=== PATIENT | female | born 1970 | race Caucasian/White ===

== ENCOUNTER 2017-01-21 04:50 | Inpatient (IN) | payer OTHER ==
[2017-01-21 05:40] LABS: Mean Cell Volume 89.6 fl (78-100); Mean Corpuscular Hemoglobin 29.1 pg (26-32); Mean Platelet Volume 10.9 fl (6-9.5); Platelet Count 229 K/mm3 (150-450); Red Blood Count 3.95 M/mm3 (4.1-5.4); Red Cell Distribution Width 13.4 % (11.5-14.0); White Blood Count 11.5 K/mm3 (4.0-10.5)
[2017-01-21] MEDS ORDERED: Lactated Ringers 1,000 ML IV ONE (06:04)
[2017-01-21 06:06] LABS: PTT 24.9 SECONDS (25.3-37.0)
[2017-01-21 06:21] LABS: Collection Type CLEAN CATCH
[2017-01-21 06:22] LABS: COMPLETE URINE MICROSCOPIC? YES; Ph 7.5 (5-6)
[2017-01-21 06:24] LABS: Bacteria RARE /HPF (NEGATIVE); Epithelial Cells FEW /HPF (FEW); WBC 0-2 /HPF (0-5)
[2017-01-21] MEDS ORDERED: KEFZOL 1 GM ONE (06:25)
[2017-01-21 06:29] LABS: INR 0.94 (0.8-3.0); PROTIME 10.6 SECONDS (9.95-12.35)
[2017-01-21] MEDS ORDERED: Lactated Ringers 1,000 ML IV SCH (06:30)
[2017-01-21] MEDS ORDERED: Reglan 10 MG/2 ML IV SCH (06:30)
[2017-01-21] MEDS ORDERED: BICITRA 30 ML CUP PO SCH (06:30)
[2017-01-21] MEDS ORDERED: Pepcid 20 MG VIAL IV SCH (06:30)
[2017-01-21] MEDS ORDERED: Sodium Chloride 0.9% 10 ML FLUSH Syringe IJ PRN (06:52)
[2017-01-21] MEDS ORDERED: PERCOCET TABLET 5/325MG PO PRN (06:52)
[2017-01-21] MEDS ORDERED: Versed 2 MG/2 ML Injection IV ONE (08:00)
[2017-01-21] MEDS ORDERED: Astramorph-Pf 5 MG/10 ML IV ONE (08:00)
[2017-01-21] MEDS ORDERED: PHENYLEPHRINE HCL IV ONE (08:00)
[2017-01-21] MEDS ORDERED: Pitocin 10 UNITS/ML IV ONE (08:00)
[2017-01-21] MEDS ORDERED: Lactated Ringers 2,000 ML IV ONE (08:19)
--- NOTE | 2017-01-21 08:59 | OP ---
SURGERY DATE/TIME: 01/21/201711 PREOPERATIVE DIAGNOSES: 1) History of prior section. 2) Term intrauterine . 3) Advanced maternal age. POSTOPERATIVE DIAGNOSES: 1) History of prior section. 2) Term intrauterine . 3) Advanced maternal age. PROCEDURE: Repeat low transverse section. SURGEON: Sergo Mendez M.D. COMPUGRAPH OPERATOR: zone maintenance technician. ESTIMATED BLOOD LOSS: 800 cc. URINE OUTPUT: 300 cc clear straw-colored urine. ANESTHESIA: Spinal. DESCRIPTION OF PROCEDURE: After informed written consent was obtained, the patient was taken to the operating room. She was prepped and draped in usual sterile fashion after she underwent spinal anesthesia. After adequate level of anesthesia was assessed, a low transverse skin incision was made by knife and carried down to the subcutaneous fat to the level of the fascia. The fascia was nicked on both sides of the midline and extended in horizontal fashion using curved Zamora scissors. The superior free edge of the fascia was grasped with Stefan clamps and the underlying rectus muscles were dissected free. The same was repeated inferiorly. The peritoneal cavity was opened and extended in horizontal fashion. Bladder blade was inserted and then bladder flap was created and reflected over the lower uterine segment. Next, a transverse uterine incision was made by knife and carried down to the amniotic membranes which were carefully artificially ruptured. A viable female infant delivered from the vertex presentation with a strong cry immediately upon delivery. The cord was clamped and cut and she was handed off to the awaiting team. There was significant blood loss from the left lateral aspect of the incision as an arterial bleed which multiple figure-of-8 sutures and ties were used. This was not related to the uterine artery but rather intrauterine. In any event there was more blood loss than usual secondary to this but the uterine incision was closed with #1 chromic in a running locked fashion and there was good closure and good hemostasis. The posterior cul-de-sac was wiped free of blood and clot with moist lap sponge and the uterus was returned to the peritoneal cavity. Again the incision was carefully inspected and there was no active bleeding with good hemostasis and good closure. The fascia was closed with 0 Vicryl in a running fashion with good closure and good hemostasis. Subcutaneous fat was irrigated with warm, sterile saline. Any areas of bleeding were cauterized with electrocautery. The skin layer was closed with 4-0 undyed Vicryl in running subcuticular fashion. Steri-Strips and occlusive dressing were placed over the incision and the patient was transferred to the recovery in excellent condition. She will be monitored closely with serial blood draws to watch her hemoglobin. I did advise the patient of this afterwards due to the increased blood loss but she was hemodynamically stable with pulse in the 80's and 90's postoperatively in the operative suite.
[2017-01-21] MEDS ORDERED: BENADRYL 50 MG/ML IV PRN (10:00)
[2017-01-21] MEDS ORDERED: Zofran 4 MG/2 ML VIAL IV PRN (10:00)
[2017-01-21] MEDS ORDERED: CLARITIN 10 MG PO PRN (10:00)
[2017-01-21] MEDS ORDERED: Anucort-HC SUPPOSITORY PR PRN (10:00)
[2017-01-21] MEDS ORDERED: Dulcolax 10 MG SUPP PR PRN (10:00)
[2017-01-21] MEDS ORDERED: TYLENOL EXTRA STRENGTH 500 MG PO PRN (10:00)
[2017-01-21] MEDS ORDERED: MORPHINE SULFATE 2 MG INJ IV PRN (10:00)
[2017-01-21] MEDS ORDERED: DEMEROL 50 MG IV PRN (10:00)
[2017-01-21] MEDS ORDERED: Mylicon 80MG PO PRN (10:00)
[2017-01-21] MEDS ORDERED: HOLD NARCOTIC ANALGESICS AND SEDATIVES X24 HR MC PRN (10:00)
[2017-01-21] MEDS ORDERED: CORTISONE 1% CREAM TP PRN (10:00)
[2017-01-21] MEDS ORDERED: LANSINOH 40 GM TOP PRN (10:00)
[2017-01-21] MEDS ORDERED: Dermoplast Spray TP PRN (10:00)
[2017-01-21] MEDS ORDERED: TUCKS TP PRN (10:00)
[2017-01-21] MEDS ORDERED: Nubain 10 MG/ML IV PRN (10:00)
[2017-01-21] MEDS ORDERED: Narcan 0.4 MG/ML IV PRN (10:00)
[2017-01-21 12:28] LABS: Mean Platelet Volume 10.6 fl (6-9.5); Platelet Count 216 K/mm3 (150-450); Red Blood Count 3.11 M/mm3 (4.1-5.4); Red Cell Distribution Width 13.4 % (11.5-14.0); White Blood Count 16.8 K/mm3 (4.0-10.5)
[2017-01-21 12:38] LABS: Mean Corpuscular Hemoglobin 29.2 pg (26-32)
[2017-01-21] MEDS: FERREX 150 PO SCH (13:45)
[2017-01-21] MEDS: Colace 100 MG PO SCH (13:45)
[2017-01-21] MEDS: Dextrose 5%-Lr IV Solution 1000 ML 1,000 ML IV SCH ×2 (13:56→20:38)
[2017-01-22] MEDS: Colace 100 MG PO SCH ×3 (00:31→23:37)
[2017-01-22 06:16] LABS: Mean Cell Volume 90.5 fl (78-100); Mean Corpuscular Hemoglobin 29.2 pg (26-32); Platelet Count 203 K/mm3 (150-450); Red Blood Count 2.84 M/mm3 (4.1-5.4); Red Cell Distribution Width 13.3 % (11.5-14.0); White Blood Count 16.3 K/mm3 (4.0-10.5)
[2017-01-22 06:28] VITALS: O2SAT 100
[2017-01-22] MEDS ORDERED: NORCO 5/325 MG PO PRN (08:00)
[2017-01-22] MEDS ORDERED: DEMEROL 75 MG IM PRN (08:00)
[2017-01-22] MEDS ORDERED: Phenergan 25 MG INJ IM PRN (08:00)
[2017-01-22] MEDS: MOTRIN 400 MG PO PRN ×2 (08:02→18:20)
[2017-01-22] MEDS: FERREX 150 PO SCH (10:22)
[2017-01-23] MEDS ORDERED: Adacel Vial IM ONE (01:00)
[2017-01-23] MEDS: MOTRIN 400 MG PO PRN (06:44)
[2017-01-23 12:24] VITALS: BP 106/53; PULSE 93
== END 2017-01-23 10:15 | disposition home or self-care (01) | DRG 766 ==
LOC: OB 04:51
PROVIDERS: ADMIT Family Medicine; ATTEND Family Medicine
PROC: 10D00Z1 Extraction of Products of Conception, Low, Open Approach (ICD-10-PCS; principal; 2017-01-21)
DX: O34.211 Maternal care for low transverse scar from previous cesarean delivery (principal); Z3A.39 39 weeks gestation of pregnancy; Z37.0 Single live birth
CPT/HCPCS: 01961; 36415; 62322; 64425; 76942; 80307; 81000; 85014; 85018; 85027; 85610; 85730; 86850; 86900; 86901; 87086; 88307; 90715; 94799; J0690; J2250; J2274; J2370; J2590; L0625; A9270-GY

== ENCOUNTER 2017-01-27 09:09 | Emergency (ER) | payer OTHER ==
[2017-01-27 09:20] VITALS: PULSE 86; O2SAT 98
[2017-01-27] MEDS ORDERED: KEFZOL 1 GM/50 ML PREMIX** 1 GM/50 ML IVPB IV STA (09:40)
[2017-01-27] MEDS ORDERED: KEFZOL 1 GM/50 ML PREMIX** 1 GM/50 ML IVPB IV ONE (09:49)
--- NOTE | 2017-01-27 09:57 | ERPHSYRPT ---
- History of Present Illness Time Seen by Provider: 01/27/17 09:30 Historian: patient Exam Limitations: clinical condition Patient Subjective Stated Complaint: had a c section thursday the adn it has popped open Triage Nursing Assessment: patient delivered via c section last thursdayjanuary 21 and this morning patient leaned over and she heard a pop and blood was everywhere. patient has opening in c section on right side. about 4 cm in length Physician History: PATIENT IS POST ON 01/21/2017 COMPLAINS OF PARTIAL WOUND OPENING WITH BLEEDING FROM WOUND. DENIES FEVER, ABDOMINAL PAIN. Timing/Duration: intermittent Abdominal Pain Onset Location: RLQ Pain Radiation: no radiation Severity of Pain-Max: none Severity of Pain-Current: none Associated Symptoms: other (BLEEDING FROM OPEN INCISIONAL WOUND) Previous symptoms: no prior history Allergies/Adverse Reactions: No Known Drug Allergies Allergy (Unverified 01/21/17 05:11) Home Medications: Vits W-Ca,Fe,FA(<1Mg) [] 1 each PO DAILY 01/21/17 [History] Hx Tetanus, Diphtheria Vaccination/Date Given: Yes Hx Influenza Vaccination/Date Given: No Hx Pneumococcal Vaccination/Date Given: No Immunizations Up to Date: Yes - Review of Systems Constitutional: No Symptoms Abdominal/Gastrointestinal: Other (PARTIALLY OPEN INCISIONAL WOUND) Neurological: No Symptoms Psychological: No Symptoms Endocrine: No Symptoms - Past Medical History Pertinent Past Medical History: Yes Neurological History: No Pertinent History ENT History: No Pertinent History Cardiac History: No Pertinent History Respiratory History: No Pertinent History Endocrine Medical History: No Pertinent History Musculoskeletal History: No Pertinent History GI Medical History: No Pertinent History History: No Pertinent History Psycho-Social History: No Pertinent History Female Reproductive Disorders: No Pertinent History Other Medical History: SEIZURE WHEN 12 YRS OLD, AFTER FALL - Past Surgical History Past Surgical History: Yes Neuro Surgical History: No Pertinent History Cardiac: No Pertinent History Respiratory: No Pertinent History Gastrointestinal: No Pertinent History Genitourinary: No Pertinent History Musculoskeletal: No Pertinent History Female Surgical History: Section Other Surgical History: c section january 21, 2017 - Social History Smoking Status: Never smoker Exposure to second hand smoke: Yes Drug Use: none - Nursing Vital Signs Nursing Vital Signs: Initial Vital Signs Temperature 98.2 F Pulse Rate 86 Respiratory Rate 20 Blood Pressure [Right Arm] 142/70 Pain Intensity 0 - Physical Exam General Appearance: no apparent distress, alert Eye Exam: PERRL/EOMI, eyes nml inspection Ears, Nose, Throat Exam: normal ENT inspection, pharynx normal, moist mucous membranes Neck Exam: normal inspection, non-tender, supple, full range of motion Respiratory Exam: normal breath sounds, lungs clear, No respiratory distress Cardiovascular Exam: regular rate/rhythm, normal heart sounds Gastrointestinal/Abdomen Exam: soft, normal bowel sounds, other (HORIZONTAL INCISIONAL WOUND, PARTIAL WOUND RLQ, 6CM WITH SEROSANGUINOUS DRAINAGE) , No tenderness, No mass Back Exam: normal inspection, normal range of motion, No CVA tenderness, No vertebral tenderness Extremity Exam: normal inspection, normal range of motion, pelvis stable Neurologic Exam: alert, oriented x 3, cooperative, normal mood/affect, nml cerebellar function, sensation nml, No motor deficits Skin Exam: normal color, warm, dry SpO2 Interpretation: normal SpO2: 98 Oxygen Delivery: Room Air Ordered Tests: Active Orders 24 hr Category Date Time Status IV Insertion STAT Care 01/27/17 09:39 Active Wound Care STAT Care 01/27/17 09:37 Active BLOOD CULTURE Stat Lab 01/27/17 09:52 Received CBC W DIFF Stat Lab 01/27/17 09:45 Completed CULTURE,WOUND Stat Lab 01/27/17 09:55 Received Manual Differential NC Stat Lab 01/27/17 09:45 Completed Medication Summary Discontinued Medications Generic Name Dose Route Start Last Admin Trade Name Freq PRN Reason Stop Dose Admin Cefazolin Sodium/Dextrose 1 gm in 50 mls @ 100 mls/hr 01/27/17 09:40 09:54 Kefzol 1 Gm/50 Ml Premix IV 01/27/17 10:09 100 mls/hr STAT STA Administration Cefazolin Sodium/Dextrose Confirm 01/27/17 09:49 Kefzol 1 Gm/50 Ml Premix Administered 01/27/17 09:50 Dose 1 gm in 50 mls @ ud IV .STK-MED ONE Lab/Rad Data: Laboratory Result Diagrams 01/27/17 09:45 Laboratory Results 01/27/17 Range/Units 09:45 WBC 7.8 (4.0-10.5) K/mm3 RBC 2.82 L (4.1-5.4) M/mm3 Hgb 8.0 L (12.0-16.0) gm/dl Hct 26.3 L (35-47) % MCV 93.3 (78-100) fl MCH 28.3 (26-32) pg MCHC 30.4 L (32-36) g/dl RDW 13.6 (11.5-14.0) % Plt Count 352 (150-450) K/mm3 MPV 9.8 H (6-9.5) fl - Progress Progress Note: 01/27/17 09:56 PATIENT GIVEN IV ANCEF 1GM IVPB, INCISIONAL WOUND CLEANED WITH HIBICLENS, GAUZE WITH ABD DRESSING APPLIED Counseled pt/family regarding: diagnosis, need for follow-up - Departure Time of Disposition: 09:30 Departure Disposition: Home Clinical Impression: WOUND DEHISCENCE Condition: Stable Critical Care Time: No Referrals: JHONNY ESCALANTE MD [Primary Care Provider] - Additional Instructions: CHANGE GAUZE DRESSING WITH ABD DRESSINGS EVERY 4-6 HOURS NEEDED. WEAR ABDOMINAL BINDER FOR 2 WEEKS. ANTIBIOTIC KEFLEX 500MG EVERY 8 HOURS FOR 10 DAYS. WATCH FOR SIGNS OF INFECTION REDNESS, INCREASING DRAINAGE, FEVER OR SWELLING. FOLLOWUP WITH DR ESCALANTE IN OFFICE TOMORROW. Prescriptions: Cephalexin Mh 500 mg [Keflex 500 mg] 500 mg PO TID #21 capsule
[2017-01-27 10:12] LABS: Mean Cell Volume 93.3 fl (78-100); Mean Platelet Volume 9.8 fl (6-9.5); Platelet Count 352 K/mm3 (150-450); Red Blood Count 2.82 M/mm3 (4.1-5.4); Red Cell Distribution Width 13.6 % (11.5-14.0); White Blood Count 7.8 K/mm3 (4.0-10.5)
[2017-01-27 10:26] LABS: Mean Corpuscular Hemoglobin 28.3 pg (26-32)
[2017-01-27 10:33] VITALS: BP 138/70
[2017-01-27 10:53] LABS: ANISOCYTOSIS 1+; Platelet Estimate NORMAL (NORMAL); Poikilocytosis 1+; Total Cells Counted 100
[2017-01-27 10:54] LABS: Hypochromia 1+; Polychromasia 1+
== END 2017-01-27 10:33 | disposition home or self-care (01) ==
LOC: ED 09:09
DX: O90.0 Disruption of cesarean delivery wound (principal)
CPT/HCPCS: 36000; 36415; 85025; 87040; 87070; 99284; J0690